=== PATIENT | male | born 1950 | race Caucasian/White ===

== ENCOUNTER → 2019-09-13 | Outpatient (CLI) | payer BC ==
[~2019-09-13] MED LIST: CELEBREX200 MG PO; FLUOXETINE HCL20 M1 PO; LISINOPRIL10 MG PO
--- NOTE | 2019-09-13 14:22 | Diagnostic Imaging Report ---
Left knee MRI without contrast. History: Knee pain. Medial meniscus tear. Decreased range of motion. Pain not responding to conservative management Comparison: None. Technique: Multiplanar multi-sequence MRI of the knee without contrast. Findings: Medial compartment: Complex tear involving posterior horn and body segments of the medial meniscus. Articular cartilage fraying and deep fissuring with full-thickness articular cartilage loss and underlying bone marrow edema at the periphery of the medial tibial plateau. Peripheral marginal osteophytes. The medial collateral ligament complex is intact. Lateral compartment: No meniscal tear or cartilage abnormality. The LCL complex is normal. Intercondylar notch: The ACL and PCL are intact. Patellofemoral compartment: No chondromalacia or patellar dislocation. Extensor mechanism: The quadriceps and patellar tendons are normal. Other findings: There is a joint effusion and synovitis. There is no acute fracture, subluxation or avascular necrosis. Soft tissue edema most pronounced anteriorly. Lobulated septated Stapleton's cyst. IMPRESSION: Complex medial meniscus tear with associated degenerative arthrosis in the medial compartment of the knee. Joint effusion, synovitis, soft tissue edema and lobulated septated Stapleton's cyst. Signed by: Dr. Neel Diallo M.D. on 09/13/2019 2:19 PM
== END ==
LOC: MRI 12:59
PROVIDERS: ATTEND Specialist
DX: S83.232D Complex tear of medial meniscus, current injury, left knee, subsequent encounter (principal)

== ENCOUNTER 2020-02-19 09:45 | Observation (INO) | payer MEDICARE, OTHER ==
[2020-02-15 15:41] LABS: BASOPHILS # (AUTO) 0.1 (0.0-0.1); EOSINOPHILS # (AUTO) 0.4 (0.0-0.4); EOSINOPHILS % 4.2 % (0.0-6.0); HEMATOCRIT 50.4 % (38.2-49.6); HEMOGLOBIN 16.8 g/dL (14.0-18.0); LYMPHOCYTES # (AUTO) 2.1 (1.0-3.2); LYMPHOCYTES % 21.9 % (18.0-39.1); MEAN CORPUSCULAR HGB CONC 33.3 g/dL (31-35); MEAN CORPUSCULAR VOLUME 86.9 fL (81-99); MONOCYTES # (AUTO) 0.8 (0.2-0.8); MONOCYTES % 8.6 % (4.4-11.3); NEUTROPHILS # (AUTO) 6.1 (2.1-6.9); PLATELET COUNT 255 x10e3/uL (140-360); RED CELL DISTRIBUTION WIDTH 14.4 % (11.7-14.4)
[~2020-02-19] VITALS: Ht 185.4 cm; Wt 102.5 kg
[~2020-02-19 09:45] MED LIST changes: +ERGOCAL2500 UNIT PO; +LOVASTATIN40 MG PO; +MELOXICAM7.5 MG PO; +ROPIVACAINE 246.25 MG, EPINEPHRINE HCL 1:1000 1ML 0.5 MG, CLONIDINE HCL 0.08 MG, KETORO... INJ ONE
[2020-02-19] MEDS ORDERED: CEFAZOLIN SOD 1 GM/NS 50ML 100 ML IV ONE (10:15)
[2020-02-19] MEDS ORDERED: CELECOXIB 200 MG CAP ONE (10:22)
[2020-02-19] MEDS ORDERED: DEXAMETHASONE SOD PHOS 10 MG/1 ML VIAL ONE ×2 (10:23→10:45)
[2020-02-19] MEDS ORDERED: GABAPENTIN 300 MG CAP ONE (10:23)
[2020-02-19] MEDS ORDERED: VANCOMYCIN HCL 1,000 MG ONE (10:45)
[2020-02-19] MEDS ORDERED: SODIUM CHLORIDE 0.9% 500ML 500 ML ONE (10:45)
[2020-02-19] MEDS ORDERED: BACITRACIN 50,000 UNIT VIAL ONE (10:46)
[2020-02-19] MEDS ORDERED: TRANEXAMIC ACID 1,000 MG/10 ML ML ONE (12:07)
[2020-02-19] MEDS ORDERED: KETOROLAC TROMETHAMINE 30 MG/ML VIAL IV PRN (13:30)
[2020-02-19] MEDS ORDERED: DIPHENHYDRAMINE HCL INJ 50 MG/ML VIAL IV PRN (13:30)
[2020-02-19] MEDS ORDERED: ONDANSETRON HCL INJ 2MG/ML 2ML 2 MG/ML VIAL IV PRN (13:30)
[2020-02-19] MEDS ORDERED: HYDROCODONE/APAP 5MG-325MG TAB PO PRN (13:30)
[2020-02-19] MEDS ORDERED: DOCUSATE SODIUM 100 MG CAP PO PRN (13:30)
[2020-02-19] MEDS ORDERED: ACETAMINOPHEN 650 MG SUPP PR PRN (13:30)
[2020-02-19] MEDS ORDERED: HYDROCODONE/APAP 7.5MG-325MG 1 EA TAB PO PRN (13:30)
[2020-02-19] MEDS ORDERED: FENTANYL CITRATE/PF 100MCG/2 ML INJ ONE ×2 (13:40→18:50)
[2020-02-19 16:07] VITALS: BP 107/70
[2020-02-19 16:15] VITALS: BP 107/70
[2020-02-19 16:16] VITALS: BP 107/70
--- NOTE | 2020-02-19 16:29 | Operative Report ---
DATE OF PROCEDURE: 02/19/2020 SURGEON: Juan Pablo Gonzalez MD OBSTETRICS TECH: Олег Steele, certified PA. PREOPERATIVE DIAGNOSIS: Osteoarthritis, left knee. POSTOPERATIVE DIAGNOSIS: Osteoarthritis, left knee. PROCEDURE: Left total knee arthroplasty. INDICATIONS: The patient is a 69-year-old gentleman, who has advanced osteoarthritis of the left knee. He has failed conservative management and would like to proceed with a left total knee replacement. The risks and benefits of the procedure have been explained. The hospital stay and implants have all been discussed. All of his questions have been answered. He states he understands and wishes to proceed. PROCEDURE IN DETAIL: The patient was brought to the operating room and placed under general anesthetic. He received a regional block, tranexamic acid, and prophylactic antibiotics in the holding area. His left lower extremity was prepped and draped in a sterile manner. A preoperative time-out was performed. The extremity was exsanguinated, and a proximal tourniquet was inflated to 300 mmHg. An anterior incision with a medial parapatellar arthrotomy was performed. A small amount of clear synovial fluid was removed from the joint. Soft tissue releases were performed to bring the knee up into flexion with the patella everted. Meniscal remnants, the cruciate ligaments, and marginal osteophytes were removed. A [employer] Persona knee system was used throughout the case. An extramedullary cutting guide was used to resect the proximal tibia. The cut was referenced off the affected medial compartment. The slope was dialed in to match the existing slope. The bone was very dense. The bone cuts were all irrigated with a spray mixture of diluted vancomycin and polymyxin spray. The tibial base plate was a size G. The central fin punch was drilled and impacted. Attention was directed towards the distal femur. An intramedullary cutting guide was used to resect the distal femur in 5 degrees of valgus and rotation referencing off a combination of landmarks including Whitesides line, the epicondylar axis and the posterior condyles. The femoral component was a size 11. The anterior and posterior cuts were made. Once again, the bone was very dense and was irrigated for all the bone cuts using the spray mixture of polymyxin and vancomycin spray. A trial reduction was performed. A 10 mm medial congruent tibial insert provided appropriate soft tissue balancing in both full extension and 90 degrees of flexion. Attention was then directed towards the patella. This was resurfaced with a 35 mm x 9 mm patellar button. The thickness was checked before and after, and it was right around 26 mm. Patellar tracking was noted to be concentric. The trial implants were all removed. A 100 mL premixed pericapsular ELIS injection was placed into the surrounding soft tissue. The knee was thoroughly irrigated with a shower tip pulsatile lavage. The components were then cemented into place with a single mix of high viscosity both Biomet cement preloaded with antibiotics. Care was taken to remove all extravasated cement. The wound was further irrigated while the cement cured. The arthrotomy was then closed with interrupted #1 Ethibond. The knee was put through flexion and extension to ensure a secure closure. The skin was closed with subcuticular Vicryl and praneeth. A sterile Aquacel bandage was applied. He was extubated and transported to the recovery room in stable condition. Blood loss was minimal. All needle and sponge counts were correct. Juan Pablo Gonzalez MD DR/MICAELA /[id number]
[2020-02-19 16:43] VITALS: BP 112/65
--- NOTE | 2020-02-19 16:45 | NUR ---
DR MIRELES OFFICE PREARRANGED FOLLOWING DISCHARGE PLAN OF: HOME TO [address] [id number] [facility] CONFIRMED WITH [facility] [phone] DME CPM PROVIDED BY [facility] [employer] [facility] ALREADY HAS [employer] BOB SIGNED AND ON CHART COPY LEFT WITH PATIENT GAVE CARD FOR QUESTIONS AND OR CONCERNS.
[2020-02-19] MEDS: SODIUM CHLORIDE 0.9% 1000ML 1,000 ML IV SCH ×2 (17:09→23:30)
[2020-02-19] MEDS: CELECOXIB 100 MG CAP PO SCH (17:34)
[2020-02-19] MEDS: ASPIRIN 325 MG TAB PO SCH (17:34)
[2020-02-19] MEDS ORDERED: ACETAMINOPHEN 1000 MG/100 ML IV PRN (18:00)
[2020-02-19] MEDS ORDERED: MIDAZOLAM HCL 2 MG/2 ML VIAL ONE (18:50)
[2020-02-19 20:00] VITALS: BP 95/57
[2020-02-19] MEDS ORDERED: EPHEDRINE SULFATE INJ 50 MG/ML VIAL ONE (20:00)
[2020-02-19] MEDS ORDERED: LIDOCAINE HCL 2% LOCAL INJ 5 ML SDV VIAL INJ ONE (20:00)
[2020-02-19] MEDS ORDERED: SEVOFLURANE INHAL SOLN 250 ML PEN BTL ONE (20:00)
[2020-02-19] MEDS ORDERED: PROPOFOL IV EMULSION 10 MG/ML 20 ML VIAL ONE (20:00)
[2020-02-19] MEDS ORDERED: ONDANSETRON HCL INJ 2MG/ML 2ML 2 MG/ML VIAL ONE (20:00)
[2020-02-19] MEDS ORDERED: EPINEPHRINE HCL 1:1000 1ML 1 MG/ML AMP ONE (20:07)
[2020-02-19] MEDS ORDERED: BUPIVACAINE HCL 0.5% INJ 30 ML VIAL INJ ONE (20:07)
[2020-02-19] MEDS: CEFAZOLIN SOD 1 GM/NS 50ML 50 ML IV SCH (20:40)
[2020-02-19 21:00] VITALS: BP 115/80
[2020-02-19] MEDS ORDERED: ZOLPIDEM TARTRATE 5 MG TAB PO PRN (21:00)
[2020-02-20] VITALS: BP 99/60
[2020-02-20] MEDS ORDERED: KETOROLAC TROMETHAMINE 30 MG/ML VIAL IV PRN
[2020-02-20] MEDS ORDERED: MAGNESIUM HYDROXIDE 30 ML UDC PO PRN
[2020-02-20] MEDS ORDERED: SENNOSIDES 8.6 MG TAB PO PRN
[2020-02-20] MEDS: CEFAZOLIN SOD 1 GM/NS 50ML 50 ML IV SCH (03:54)
[2020-02-20] MEDS: SODIUM CHLORIDE 0.9% 1000ML 1,000 ML IV SCH (03:54)
[2020-02-20 04:00] VITALS: BP 107/67
[2020-02-20 06:18] LABS: HEMATOCRIT 47.1 % (38.2-49.6); HEMOGLOBIN 15.5 g/dL (14.0-18.0)
[2020-02-20 06:34] LABS: ANION GAP 12.7 mmol/L (8-16); CALCIUM 8.2 mg/dL (8.4-10.2); CREATININE, SERUM 1.29 mg/dL (0.72-1.25); POTASSIUM 4.7 mmol/L (3.5-5.1)
--- NOTE | 2020-02-20 07:12 | NUR ---
REPORT GIVEN TO DAYSLAFT NURSE. RESTING IN BED. AAOX3. BED LOCKED AND IN LOW POSITION. SR UPX2. CALL LIGHT WITHIN REACH. NO SIGNS OF IV INFILTRATION. BED ALARM ACTIVATED.
--- NOTE | 2020-02-20 07:29 | NUR ---
Bedside rounding completed and the pt. is currently connected to the CPM. He denies pain or disconfort.
[2020-02-20 07:31] VITALS: BP 129/74
[2020-02-20 07:50] VITALS: BP 129/74
[2020-02-20] MEDS ORDERED: ONDANSETRON HCL 4 MG ORAL DISINTEGRATING TAB PO PRN (08:45)
[2020-02-20] MEDS: ASPIRIN 325 MG TAB PO SCH (08:52)
[2020-02-20] MEDS: CELECOXIB 100 MG CAP PO SCH (08:52)
[2020-02-20] MEDS ORDERED: FLUOXETINE HCL 20 MG CAP PO SCH (09:00)
--- NOTE | 2020-02-20 09:22 | Diagnostic Imaging Report ---
EXAMINATION: KNEE LEFT 1-2 VIEWS INDICATION: Postoperative COMPARISON: None FINDINGS: Portable AP and lateral images of the left knee demonstrate immediate postoperative findings status post left total knee replacement. Alignment appears anatomic. No unexpected fracture. Postoperative soft tissue emphysema. Surgical skin praneeth in place. IMPRESSION: Expected findings status post left total knee replacement. Signed by: Malachi Segura MD on 02/20/2020 9:07 AM
--- NOTE | 2020-02-20 09:52 | Consultation ---
DATE OF CONSULTATION: PRIMARY CARE PHYSICIAN: Dr. Kartik Perez. REASON FOR CONSULTATION: Medical management. HISTORY OF PRESENT ILLNESS: The patient is a 69-year-old male, status post left total knee replacement. The patient is otherwise stable. At baseline, the patient has hypertension, osteoarthritis, chronic low back pain. The patient has dyslipidemia. No complaint of chest pain or shortness of breath. PAST MEDICAL HISTORY: Osteoarthritis of knee status post left knee arthroplasty and lower back surgery and now status post left knee replacement. Hypertension, dyslipidemia. PAST SURGICAL HISTORY: As above. SOCIAL HISTORY: The patient does not smoke or use alcohol. No recreational drugs. ALLERGIES: NO KNOWN ALLERGIES. HOME MEDICATIONS: Vitamin D3, Prozac, lisinopril, lovastatin, and meloxicam. REVIEW OF SYSTEMS: As above. PHYSICAL EXAMINATION: VITAL SIGNS: Temperature is 98, blood pressure 129/74, pulse rate 70, respirations 18. GENERAL: The patient is not in acute distress. HEENT: Normocephalic and atraumatic. Anicteric. NECK: Supple grossly. PULMONARY: Diminished breath sounds. CARDIOVASCULAR: S1, S2. Regular rate and rhythm. ABDOMEN: Soft and unremarkable. EXTREMITIES: No cyanosis or edema. NEUROLOGIC: No focal deficit. LABORATORY DATA: WBC is 9.5, hemoglobin 16.8, hematocrit 50, platelet is 255. Chemistry, sodium 139, potassium 4.7, chloride , bicarb 22, BUN 23, creatinine 1.2, glucose 127. IMPRESSION: 1. The patient is status post left total knee arthroplasty. 2. Hypertension. 3. Osteoarthritis. PLAN: Continue with home medication. IV fluids will be discontinued in the morning. PT/OT. When the patient goes home, he will resume his home medication. MD KOFI Real/LUCIEL /[id number]
--- NOTE | 2020-02-20 10:51 | NUR ---
The pt. has been cleared for discharge by therapy.
--- NOTE | 2020-02-20 11:42 | NUR ---
The pt. was escorted to private car for transport to home in stable condition.
== END 2020-02-20 11:36 | disposition home or self-care (01) ==
LOC: OR 09:45 → PACU V 13:24 → MED/SURG 15:36
PROVIDERS: ADMIT Specialist; ATTEND Specialist
DX: M17.0 Bilateral primary osteoarthritis of knee (principal); G47.33 Obstructive sleep apnea (adult) (pediatric); I10 Essential (primary) hypertension
CPT/HCPCS: 27447; 36415 ×2; 73560; 80048; 85014; 85018; 85025; 86850; 86900; 86920 ×2; 87635; 93005; 97110; 97116 ×2; 97161; 97530 ×2; C1713; G0378 ×2; J0171; J0690 ×2; J1100; J1885; J2001; J2250; J2405; J2704; J2795; J3010; J3370; J7030 ×2; J7040

== ENCOUNTER 2021-01-11 05:40 | Observation (INO) | payer MEDICARE ==
[~2021-01-11] VITALS: Ht 185.4 cm; Wt 104.3 kg
[~2021-01-11 05:40] MED LIST changes: -ROPIVACAINE 246.25 MG, EPINEPHRINE HCL 1:1000 1ML 0.5 MG, CLONIDINE HCL 0.08 MG, KETORO... INJ ONE
[2021-01-11] MEDS ORDERED: PANTOPRAZOLE 40 MG 10ML VIAL IV STA (06:05)
[2021-01-11] MEDS ORDERED: ONDANSETRON HCL INJ 2MG/ML 2ML 2 MG/ML VIAL IV STA (06:05)
[2021-01-11] MEDS ORDERED: MORPHINE SULFATE INJ 4 MG/ML INJ 1ML IV STA (06:05)
[2021-01-11] MEDS ORDERED: SODIUM CHLORIDE 0.9% 1000ML 1,000 ML IV STA (06:05)
[2021-01-11 06:19] LABS: BASOPHILS # (AUTO) 0.1 (0.0-0.1); BASOPHILS % 0.4 % (0.0-1.0); EOSINOPHILS % 0.4 % (0.0-6.0); HEMATOCRIT 45.5 % (38.2-49.6); HEMOGLOBIN 15.8 g/dL (14.0-18.0); LYMPHOCYTES # (AUTO) 1.5 (1.0-3.2); LYMPHOCYTES % 13.6 % (18.0-39.1); MEAN CORPUSCULAR HEMOGLOBIN 29.4 pg (28-32); MEAN CORPUSCULAR HGB CONC 34.7 g/dL (31-35); MEAN CORPUSCULAR VOLUME 84.7 fL (81-99); MONOCYTES # (AUTO) 0.5 (0.2-0.8); MONOCYTES % 4.8 % (4.4-11.3); NEUTROPHILS # (AUTO) 8.9 (2.1-6.9); NEUTROPHILS % 80.3 % (38.7-80.0); PLATELET COUNT 252 x10e3/uL (140-360); RED BLOOD COUNT 5.37 x10e6/uL (4.3-5.7); RED CELL DISTRIBUTION WIDTH 13.6 % (11.7-14.4)
[2021-01-11] MEDS ORDERED: MORPHINE SULFATE INJ 4 MG/ML INJ 1ML ONE (06:24)
[2021-01-11] MEDS ORDERED: ONDANSETRON HCL INJ 2MG/ML 2ML 2 MG/ML VIAL ONE (06:24)
[2021-01-11] MEDS ORDERED: PANTOPRAZOLE 40 MG 10ML VIAL ONE (06:25)
[2021-01-11 06:35] LABS: INR 0.93; PROTHROMBIN TIME 13.1 seconds (11.9-14.5)
[2021-01-11 06:36] LABS: PARTIAL THROMBOPLASTIN TIME 27.1 seconds (23.8-35.5)
[2021-01-11] MEDS ORDERED: HYDROMORPHONE 1MG/1ML INJ IV STA (06:36)
[2021-01-11 06:44] LABS: ALBUMIN 4.3 g/dL (3.5-5.0); ALBUMIN/GLOBULIN RATIO 1.6 (0.8-2.0); ANION GAP 17.8 mmol/L (8-16); CALCIUM 8.8 mg/dL (8.4-10.2); CREATININE, SERUM 1.43 mg/dL (0.72-1.25); MAGNESIUM 1.7 MG/DL (1.3-2.1); POTASSIUM 4.8 mmol/L (3.5-5.1)
[2021-01-11 06:48] LABS: CHOL/HDL RATIO 3.9 (3.9-4.7)
[2021-01-11] MEDS ORDERED: HYDROMORPHONE 1MG/1ML INJ ONE (06:49)
[2021-01-11 06:55] LABS: CREATINE KINASE MB 2.3 ng/mL (0-5.0)
[2021-01-11] MEDS ORDERED: DICYCLOMINE HCL 20 MG/2 ML VIAL IM ONE (07:00)
[2021-01-11] MEDS ORDERED: PROMETHAZINE 25MG/ NS 50ML (IV) IV ONE (07:00)
[2021-01-11 07:18] LABS: CLARITY,URINE CLEAR (CLEAR); COLOR,URINE YELLOW (YELLOW); LEUKOCYTE ESTERASE ,URINE NEGATIVE (NEGATIVE)
[2021-01-11 07:19] LABS: KETONES,URINE TRACE (NEGATIVE); NITRITE,URINE NEGATIVE (NEGATIVE); PROTEIN,URINE DIPSTICK NEGATIVE (NEGATIVE); URINE UROBILINOGEN 0.2 mg/dL (0.2 - 1)
[2021-01-11 07:31] LABS: BACTERIA,URINE RARE /HPF; RBC,URINE 0-5 /HPF (0-5)
[2021-01-11] MEDS ORDERED: PROMETHAZINE 12.5MG/ NACL 0.9% 12.5 MG/50 ML BAG IV PRN (08:30)
[2021-01-11] MEDS ORDERED: ONDANSETRON HCL INJ 2MG/ML 2ML 2 MG/ML VIAL IV PRN (08:30)
[2021-01-11] MEDS ORDERED: CEFTRIAXONE SOD 1 GM/50 ML BAG IV ONE (08:30)
[2021-01-11] MEDS ORDERED: HYDROMORPHONE 1MG/1ML INJ IV PRN (08:30)
[2021-01-11] MEDS ORDERED: CEFTRIAXONE SOD 1 GM in SODIUM CHLORIDE 0.9% 50ML 50 ML IV ONE (08:45)
[2021-01-11] MEDS: SODIUM CHLORIDE 0.9% 1000ML 1,000 ML IV SCH ×3 (09:18→20:45)
[2021-01-11] MEDS ORDERED: PIPER-TAZ 3.375 GM / NS 50ML IV SCH (10:45)
[2021-01-11] MEDS: PIPERACILLIN/TAZOBAC 3.375 GM in SODIUM CHLORIDE 0.9% 50ML 50 ML IV SCH ×2 (11:32→20:45)
[2021-01-11 14:02] VITALS: BP 125/84
[2021-01-11 14:11] VITALS: BP 125/84
[2021-01-11 16:47] VITALS: BP 124/80
[2021-01-11 18:11] LABS: CREATINE KINASE MB 1.8 ng/mL (0-5.0)
[2021-01-11 20:00] VITALS: BP 122/78
[2021-01-11] MEDS ORDERED: PIPERACILLIN/TAZOBAC 3.375 GM VIAL ONE (20:00)
[2021-01-11] MEDS ORDERED: SODIUM CHLORIDE 0.9% 50ML 50 ML ONE (20:01)
[2021-01-11 20:36] VITALS: BP 122/78
[2021-01-11] MEDS: PANTOPRAZOLE 40 MG 10ML VIAL IV SCH (20:45)
[2021-01-12] VITALS: BP 132/87
[2021-01-12 00:03] LABS: CREATINE KINASE MB 1.6 ng/mL (0-5.0)
[2021-01-12] MEDS ORDERED: PIPERACILLIN/TAZOBAC 3.375 GM VIAL ONE (03:54)
[2021-01-12] MEDS ORDERED: SODIUM CHLORIDE 0.9% 50ML 50 ML ONE (03:54)
[2021-01-12] MEDS: PIPERACILLIN/TAZOBAC 3.375 GM in SODIUM CHLORIDE 0.9% 50ML 50 ML IV SCH (05:06)
[2021-01-12] MEDS: SODIUM CHLORIDE 0.9% 1000ML 1,000 ML IV SCH (05:06)
[2021-01-12 05:32] LABS: BASOPHILS # (AUTO) 0.1 (0.0-0.1); BASOPHILS % 0.6 % (0.0-1.0); EOSINOPHILS # (AUTO) 0.3 (0.0-0.4); EOSINOPHILS % 3.2 % (0.0-6.0); HEMATOCRIT 42.4 % (38.2-49.6); HEMOGLOBIN 14.3 g/dL (14.0-18.0); LYMPHOCYTES # (AUTO) 2.4 (1.0-3.2); LYMPHOCYTES % 29.9 % (18.0-39.1); MEAN CORPUSCULAR HEMOGLOBIN 29.2 pg (28-32); MEAN CORPUSCULAR HGB CONC 33.7 g/dL (31-35); MEAN CORPUSCULAR VOLUME 86.5 fL (81-99); MONOCYTES # (AUTO) 0.7 (0.2-0.8); MONOCYTES % 8.8 % (4.4-11.3); NEUTROPHILS # (AUTO) 4.7 (2.1-6.9); NEUTROPHILS % 57.1 % (38.7-80.0); PLATELET COUNT 210 x10e3/uL (140-360); RED CELL DISTRIBUTION WIDTH 14.1 % (11.7-14.4)
[2021-01-12 05:54] LABS: ALBUMIN 3.5 g/dL (3.5-5.0); ALBUMIN/GLOBULIN RATIO 1.5 (0.8-2.0); ANION GAP 12.1 mmol/L (8-16); CALCIUM 8.3 mg/dL (8.4-10.2); CREATININE, SERUM 1.26 mg/dL (0.72-1.25); POTASSIUM 4.1 mmol/L (3.5-5.1)
[2021-01-12 06:27] LABS: CREATINE KINASE MB 1.3 ng/mL (0-5.0)
[2021-01-12 07:47] VITALS: BP 138/90
[2021-01-12 08:17] VITALS: BP 138/90
[2021-01-12] MEDS: PANTOPRAZOLE 40 MG 10ML VIAL IV SCH (09:19)
[2021-01-12 11:48] VITALS: BP 137/86
[2021-01-12] MEDS ORDERED: LIDOCAINE HCL 2% LOCAL INJ 5 ML SDV VIAL INJ ONE (13:24)
[2021-01-12] MEDS ORDERED: PROPOFOL IV EMULSION 10 MG/ML 20 ML VIAL ONE (13:24)
[2021-01-12] MEDS ORDERED: FENTANYL CITRATE/PF 100MCG/2 ML INJ ONE (19:44)
[2021-01-12] MEDS ORDERED: MIDAZOLAM HCL 2 MG/2 ML VIAL ONE (19:44)
== END 2021-01-12 12:56 | disposition home or self-care (01) ==
LOC: ER 05:55 → INTOOBSV 08:38 → ERHOLD 08:38 → MED/SURG2 13:12
PROVIDERS: ADMIT Internal Medicine; ATTEND Internal Medicine
DX: K25.9 Gastric ulcer, unspecified as acute or chronic, without hemorrhage or perforation (principal); K44.9 Diaphragmatic hernia without obstruction or gangrene; Z20.822 Contact with and (suspected) exposure to COVID-19; E78.5 Hyperlipidemia, unspecified; F32.9 Major depressive disorder, single episode, unspecified; F41.9 Anxiety disorder, unspecified; M54.5 Low back pain; G89.29 Other chronic pain; Z96.652 Presence of left artificial knee joint; K29.70 Gastritis, unspecified, without bleeding
CPT/HCPCS: 36415 ×2; 43239; 71045; 74181; 76705; 80053 ×2; 80061; 81001; 82150 ×2; 82550 ×2; 82553 ×2; 83690 ×2; 83735; 84484 ×2; 85025 ×2; 85610; 85730; 87086; 88305; 88312; 93005; 99284; C9113 ×2; G0378 ×2; J0500; J0696; J1170; J2270; J2405; J2543 ×2; J2550; J7030 ×2; U0002; J2001; J2250; J3010

== ENCOUNTER 2021-05-11 07:03 | Observation (INO) | payer MEDICARE ==
[2021-05-06 13:33] LABS: BASOPHILS # (AUTO) 0.1 (0.0-0.1); BASOPHILS % 0.9 % (0.0-1.0); EOSINOPHILS # (AUTO) 0.3 (0.0-0.4); EOSINOPHILS % 4.3 % (0.0-6.0); HEMATOCRIT 47.8 % (38.2-49.6); LYMPHOCYTES # (AUTO) 2.2 (1.0-3.2); LYMPHOCYTES % 27.8 % (18.0-39.1); MEAN CORPUSCULAR HEMOGLOBIN 29.6 pg (28-32); MEAN CORPUSCULAR HGB CONC 33.5 g/dL (31-35); MEAN CORPUSCULAR VOLUME 88.5 fL (81-99); MONOCYTES # (AUTO) 0.7 (0.2-0.8); MONOCYTES % 8.4 % (4.4-11.3); NEUTROPHILS # (AUTO) 4.6 (2.1-6.9); NEUTROPHILS % 58.2 % (38.7-80.0); PLATELET COUNT 266 x10e3/uL (140-360); RED CELL DISTRIBUTION WIDTH 13.2 % (11.7-14.4)
[~2021-05-11] VITALS: Ht 185.4 cm; Wt 103.0 kg
[~2021-05-11 07:03] MED LIST changes: +AMOXICILLIN500 MG PO; +CLARITHROMYCIN500 MG PO; +COLACE100 MG PO; +OMEPRAZOLE40 MG PO; +SUCRALFATE1 GM PO; +VITAMIN D PO
[2021-05-11] MEDS ORDERED: DEXAMETHASONE SOD PHOS 10 MG/1 ML VIAL ONE ×2 (07:30→13:31)
[2021-05-11] MEDS ORDERED: ROPIVACAINE 246.25 MG, EPINEPHRINE HCL 1:1000 1ML 0.5 MG, CLONIDINE HCL 0.08 MG, KETORO... INJ ONE ×5 (07:30)
[2021-05-11] MEDS ORDERED: GABAPENTIN 300 MG CAP ONE (07:30)
[2021-05-11] MEDS ORDERED: CELECOXIB 200 MG CAP ONE (07:30)
[2021-05-11] MEDS ORDERED: SODIUM CHLORIDE 0.9% 50ML 100 ML ONE (07:31)
[2021-05-11] MEDS ORDERED: Vancomycin IV 1,000 MG ONE (09:03)
[2021-05-11] MEDS ORDERED: TRANEXAMIC ACID 1,000 MG/10 ML ML ONE (09:03)
[2021-05-11] MEDS ORDERED: SODIUM CHLORIDE 0.9% 500ML 500 ML ONE (09:04)
[2021-05-11] MEDS ORDERED: DOCUSATE SODIUM 100 MG CAP PO PRN (11:15)
[2021-05-11] MEDS ORDERED: ACETAMINOPHEN 650 MG SUPP PR PRN (11:15)
[2021-05-11] MEDS ORDERED: HYDROCODONE/APAP 7.5MG-325MG 1 EA TAB PO PRN (11:15)
[2021-05-11] MEDS ORDERED: HYDROCODONE/APAP 5MG-325MG TAB PO PRN (11:15)
[2021-05-11] MEDS ORDERED: DIPHENHYDRAMINE HCL INJ 50 MG/ML VIAL IV PRN (11:15)
[2021-05-11] MEDS ORDERED: KETOROLAC TROMETHAMINE 30 MG/ML VIAL IV PRN (11:15)
[2021-05-11] MEDS ORDERED: ONDANSETRON HCL INJ 2MG/ML 2ML 2 MG/ML VIAL IV PRN (11:15)
[2021-05-11] MEDS ORDERED: SODIUM CHLORIDE 0.9% 1000ML 1,000 ML IV SCH (11:15)
[2021-05-11] MEDS ORDERED: HYDROMORPHONE 2MG/ML 2 MG/ML ML ONE (11:34)
[2021-05-11] MEDS ORDERED: ACETAMINOPHEN 1000 MG/100 ML 100 ML IV ONE (11:52)
[2021-05-11] MEDS ORDERED: ONDANSETRON HCL INJ 2MG/ML 2ML 2 MG/ML VIAL ONE (11:54)
[2021-05-11] MEDS ORDERED: LIDOCAINE HCL 2% LOCAL INJ 5 ML SDV VIAL INJ ONE (11:54)
[2021-05-11] MEDS ORDERED: SEVOFLURANE INHAL SOLN 250 ML PEN BTL ONE (11:54)
[2021-05-11] MEDS ORDERED: PROPOFOL IV EMULSION 10 MG/ML 20 ML VIAL ONE (11:54)
[2021-05-11] MEDS ORDERED: PHENYLEPHRINE HCL 1% 10 MG/ML VIAL ONE (11:54)
[2021-05-11] MEDS ORDERED: POVIDONE IODINE 0.05% 0.05 % ML PO ONE (11:54)
[2021-05-11] MEDS ORDERED: FENTANYL CITRATE/PF 100MCG/2 ML INJ ONE (12:05)
[2021-05-11 12:39] VITALS: BP 99/67
[2021-05-11 12:42] VITALS: BP 99/67
[2021-05-11 12:43] VITALS: BP 99/67
[2021-05-11] MEDS ORDERED: BUPIVACAINE 0.25% 30ML SDV ONE (13:31)
[2021-05-11] MEDS ORDERED: ACETAMINOPHEN 1000 MG/100 ML IV PRN (14:00)
[2021-05-11 15:51] VITALS: BP 103/66
[2021-05-11] MEDS ORDERED: CELECOXIB 100 MG CAP PO SCH (17:00)
[2021-05-11] MEDS ORDERED: ASPIRIN 325 MG TAB PO SCH (17:00)
[2021-05-11] MEDS ORDERED: Cefazolin 1 GM in SODIUM CHLORIDE 0.9% 50ML 50 ML IV SCH (18:00)
[2021-05-11] MEDS ORDERED: ZOLPIDEM TARTRATE 5 MG TAB PO PRN (21:00)
== END 2021-05-11 17:30 | disposition home or self-care (01) ==
LOC: OR 07:03 → PACU V 11:10 → IMCU 12:19
PROVIDERS: ADMIT Specialist; ATTEND Specialist
DX: M17.0 Bilateral primary osteoarthritis of knee (principal); Z96.652 Presence of left artificial knee joint; Z20.822 Contact with and (suspected) exposure to COVID-19; Z01.818 Encounter for other preprocedural examination; E66.9 Obesity, unspecified; Z68.34 Body mass index [BMI] 34.0-34.9, adult; G47.33 Obstructive sleep apnea (adult) (pediatric); E78.5 Hyperlipidemia, unspecified; F32.9 Major depressive disorder, single episode, unspecified
CPT/HCPCS: 27447; 36415; 71046; 73560; 85025; 86850; 86900; 86920; 93005; 97110; 97116; 97161; C1713; C1776 ×3; G0378; J0131; J0171; J0690; J1100; J1170; J1885; J2001; J2370; J2405; J2704; J2795; J3010; J3370; J7040; U0002

== ENCOUNTER → 2024-08-07 | Day surgery (SDC) | payer MEDICARE ==
[2024-08-02 14:33] LABS: BASOPHILS % 0.5 % (0.0-1.0); EOSINOPHILS # (AUTO) 0.2 (0.0-0.4); EOSINOPHILS % 2.1 % (0.0-6.0); HEMOGLOBIN 14.9 g/dL (14.0-18.0); LYMPHOCYTES # (AUTO) 1.9 (1.0-3.2); LYMPHOCYTES % 24.9 % (18.0-39.1); MEAN CORPUSCULAR HEMOGLOBIN 30.5 pg (28-32); MEAN CORPUSCULAR HGB CONC 33.1 g/dL (31-35); MEAN CORPUSCULAR VOLUME 92.2 fL (81-99); MONOCYTES # (AUTO) 0.5 (0.2-0.8); NEUTROPHILS # (AUTO) 4.9 (2.1-6.9); NEUTROPHILS % 65.2 % (38.7-80.0); PLATELET COUNT 244 x10e3/uL (140-360); RED BLOOD COUNT 4.88 x10e6/uL (4.3-5.7); RED CELL DISTRIBUTION WIDTH 13.2 % (11.7-14.4); WHITE BLOOD COUNT 7.46 x10e3/uL (4.8-10.8)
[~2024-08-07] MED LIST changes: +ACETAMINOPHEN-1 EAC4 PO; +ATORVASTATIN CA20 MG PO; +BUPROPION HCL75 MG PO
[2024-08-07] MEDS: LACTATED RINGER'S 1,000 ML ONE (07:42)
[2024-08-07 10:16] VITALS: TEMP 98.8
[2024-08-07 11:15] VITALS: BP 127/84; PULSE 64; RESP 18; O2SAT 97
== END | disposition home or self-care (01) ==
LOC: OR 06:35
PROVIDERS: ATTEND Plastic Surgery
DX: M65.342 Trigger finger, left ring finger (principal); G47.33 Obstructive sleep apnea (adult) (pediatric); I10 Essential (primary) hypertension; E78.5 Hyperlipidemia, unspecified; R73.03 Prediabetes; G89.29 Other chronic pain; Z01.810 Encounter for preprocedural cardiovascular examination; Z01.812 Encounter for preprocedural laboratory examination; Z01.818 Encounter for other preprocedural examination; Z79.899 Other long term (current) drug therapy
CPT/HCPCS: 26055; 36415; 71046; 85025; 93005; J0690; J7121